=== PATIENT | male | born 1965 | race Two or more races ===

== ENCOUNTER 2018-01-25 13:19 | Emergency (ER) | payer OTHER, MEDICARE ==
[2018-01-25] MEDS ORDERED: LORazepam 2 MG/ML INJ IV STA (13:47)
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
[2018-01-25 14:09] LABS: Basophils % (A) 1 %; Eosinophils # (A) 0.2 k/uL (0-0.7); Eosinophils % (A) 3 %; HCT 47.8 % (39.0-53.0); HGB 16.9 gm/dL (13.0-17.5); Lymphocytes # (A) 2.1 k/uL (1.0-4.8); Lymphocytes % (A) 31 %; MCH 31.8 pg (25.0-35.0); MCHC 35.4 g/dL (31.0-37.0); MCV 89.7 fL (80.0-100.0); Mean Platelet Volume 7.6; Monocytes # (A) 0.3 k/uL (0-1.0); Monocytes % (A) 5 %; Neutrophils # (A) 3.8 k/uL (1.3-7.7); Neutrophils % (A) 59 %; Platelet Count 228 k/uL (150-450); RBC 5.32 m/uL (4.30-5.90); RDW 12.7 % (11.5-15.5); WBC 6.6 k/uL (3.8-10.6)
[2018-01-25 14:19] LABS: ALT 59 U/L (21-72); AST 30 U/L (17-59); Albumin 4.2 g/dL (3.5-5.0); Alkaline Phosphatase 140 U/L (38-126); Anion Gap 13 mmol/L; Blood Urea Nitrogen 16 mg/dL (9-20); Calcium 9.6 mg/dL (8.4-10.2); Carbon Dioxide 19 mmol/L (22-30); Chloride 103 mmol/L (98-107); Glucose 415 mg/dL (74-99); Potassium 4.4 mmol/L (3.5-5.1); Sodium 135 mmol/L (137-145); Total Bilirubin 0.6 mg/dL (0.2-1.3)
[2018-01-25 14:24] LABS: Valproic Acid (Depakene) <10.0 ug/mL
[2018-01-25 15:23] LABS: Appearance,Urine Clear (Clear); Bilirubin,Urine Negative (Negative); Blood,Urine Negative (Negative); Color,Urine Light Yellow; Glucose,Urine (UA) 4+ (Negative); Leukocyte Esterase,Urine Negative (Negative); Nitrite,Urine Negative (Negative); Protein,Urine Negative (Negative); Specific Gravity,Urine 1.031 (1.001-1.035); Urobilinogen,Urine <2.0 mg/dL (<2.0)
[2018-01-25] MEDS ORDERED: DIVALPROEX 500 MG TABLET.DR PO STA (15:29)
[2018-01-25 15:36] LABS: Glucose,Whole Blood 358 mg/dL (75-99)
[2018-01-25] MEDS ORDERED: INSULIN ASPART 100 UNIT/ML 1 ML 10 ML VIAL SQ ONE (15:44)
[2018-01-25 15:55] LABS: Ketones,Urine 2+ (Negative)
[2018-01-25 15:56] VITALS: BP 144/83; PULSE 79; RESP 16; TEMP 98.9
== END 2018-01-25 16:05 | disposition home or self-care (01) ==
LOC: EC 13:19
DX: G40.909 Epilepsy, unspecified, not intractable, without status epilepticus (principal); R03.0 Elevated blood-pressure reading, without diagnosis of hypertension; G47.33 Obstructive sleep apnea (adult) (pediatric); E11.9 Type 2 diabetes mellitus without complications; E32.9 Disease of thymus, unspecified; Z79.84 Long term (current) use of oral hypoglycemic drugs; Z79.899 Other long term (current) drug therapy
CPT/HCPCS: 36415; 80164; 80053; 80175; 81003; 85025; 99284; 96374; J2060

== ENCOUNTER 2018-02-28 18:10 | Emergency (ER) | payer MEDICARE ==
[2018-02-28 18:33] VITALS: BP 137/91; PULSE 92; RESP 18; TEMP 98.8
[2018-02-28] MEDS ORDERED: CEPHALEXIN 500MG STARTER PACK 4 CAP BTL PO STA (19:08)
[2018-02-28] MEDS ORDERED: SULFAMETH-TMP DS STARTER PACK 2 TAB BTL PO STA (19:08)
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
== END 2018-02-28 19:28 | disposition home or self-care (01) ==
LOC: EC 18:10
DX: L02.31 Cutaneous abscess of buttock (principal); E11.9 Type 2 diabetes mellitus without complications; F31.9 Bipolar disorder, unspecified; G40.909 Epilepsy, unspecified, not intractable, without status epilepticus; F41.9 Anxiety disorder, unspecified; G47.33 Obstructive sleep apnea (adult) (pediatric); Z79.84 Long term (current) use of oral hypoglycemic drugs; Z79.899 Other long term (current) drug therapy
CPT/HCPCS: 87070; 87205; 99283

== ENCOUNTER → 2018-04-09 | Outpatient (CLI) | payer OTHER | END | disposition home or self-care (01) | LOC: LABWHC1 13:34 | PROVIDERS: ATTEND Psychiatry & Neurology Clinical Neurophysiology | DX: Z91.19 Patient's noncompliance with other medical treatment and regimen (principal) | CPT/HCPCS: 36415; 80175 ==

== ENCOUNTER 2018-05-25 17:17 | Emergency (ER) | payer OTHER, MEDICARE ==
[2018-05-25] MEDS ORDERED: LORazepam 2 MG/ML INJ IV STA (17:35)
[2018-05-25] MEDS ORDERED: SODIUM CHLORIDE 0.9% 1,000 ML IV STA (17:35)
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
[2018-05-25 18:37] LABS: Basophils % (A) 0 %; Eosinophils # (A) 0.2 k/uL (0-0.7); Eosinophils % (A) 3 %; Lymphocytes # (A) 2.3 k/uL (1.0-4.8); Lymphocytes % (A) 27 %; MCH 30.7 pg (25.0-35.0); MCHC 33.2 g/dL (31.0-37.0); MCV 92.2 fL (80.0-100.0); Mean Platelet Volume 7.1; Monocytes # (A) 0.4 k/uL (0-1.0); Monocytes % (A) 5 %; Neutrophils # (A) 5.5 k/uL (1.3-7.7); Neutrophils % (A) 64 %; Platelet Count 247 k/uL (150-450); RBC 5.21 m/uL (4.30-5.90); RDW 13.6 % (11.5-15.5); WBC 8.7 k/uL (3.8-10.6)
[2018-05-25 18:38] LABS: Appearance,Urine Clear (Clear); Bilirubin,Urine Negative (Negative); Blood,Urine Negative (Negative); Color,Urine Yellow; Glucose,Urine (UA) 4+ (Negative); Ketones,Urine 1+ (Negative); Leukocyte Esterase,Urine Negative (Negative); Nitrite,Urine Negative (Negative); Protein,Urine Negative (Negative); Specific Gravity,Urine 1.036 (1.001-1.035)
[2018-05-25 18:50] LABS: Amphetamine Screen,Urine Not Detected (NotDetected); Barbiturate Screen,Urine Not Detected (NotDetected); Benzodiazepines Screen,Urine Not Detected (NotDetected); Cocaine Screen,Urine Not Detected (NotDetected); Methadone Screen, Urine Not Detected (NotDetected); Opiate Screen,Urine Not Detected (NotDetected); Oxycodone Screen, Urine Not Detected (NotDetected); Phencyclidine Screen,Urine Not Detected (NotDetected); Tricyclic Antidepressant,Urine Not Detected (NotDetected); Urn Cannabinoid Scrn Not Detected (NotDetected)
[2018-05-25 18:51] LABS: ALT 34 U/L (21-72); AST 21 U/L (17-59); Albumin 4.3 g/dL (3.5-5.0); Alcohol <10 mg/dL; Alkaline Phosphatase 95 U/L (38-126); Anion Gap 13 mmol/L; Blood Urea Nitrogen 16 mg/dL (9-20); Calcium 9.9 mg/dL (8.4-10.2); Carbon Dioxide 23 mmol/L (22-30); Chloride 102 mmol/L (98-107); Glucose 309 mg/dL (74-99); Potassium 4.4 mmol/L (3.5-5.1); Sodium 138 mmol/L (137-145); Total Bilirubin 0.5 mg/dL (0.2-1.3); Total Protein 7.1 g/dL (6.3-8.2)
[2018-05-25 18:56] LABS: Valproic Acid (Depakene) 45.1 ug/mL
[2018-05-25] MEDS ORDERED: DIVALPROEX 500 MG TABLET.DR PO STA (20:52)
[2018-05-25 21:00] LABS: Glucose,Whole Blood 273 mg/dL (75-99)
[2018-05-25] MEDS ORDERED: INSULIN REGULAR 100 UNIT/ML VIAL SQ ONE (21:05)
[2018-05-25 21:26] VITALS: BP 142/82; PULSE 82; RESP 16
[2018-05-25 21:27] VITALS: TEMP 98.2
[2018-05-26 04:26] LABS: Hemoglobin A1C 9.7 % (4.0-6.0)
== END 2018-05-25 21:24 | disposition home or self-care (01) ==
LOC: EC 17:17
DX: G40.909 Epilepsy, unspecified, not intractable, without status epilepticus (principal); E11.65 Type 2 diabetes mellitus with hyperglycemia; E78.5 Hyperlipidemia, unspecified; F32.9 Major depressive disorder, single episode, unspecified; G47.33 Obstructive sleep apnea (adult) (pediatric); Z87.820 Personal history of traumatic brain injury; Z98.890 Other specified postprocedural states; Z99.89 Dependence on other enabling machines and devices; Z79.84 Long term (current) use of oral hypoglycemic drugs; Z79.899 Other long term (current) drug therapy
CPT/HCPCS: 99284; 96374; 96361 ×3; 36415; 93005; 80164; 80053; 80175; 85025; 81003; 80306; 80320; 83036; J2060

== ENCOUNTER → 2020-01-09 | Outpatient (CLI) | payer OTHER | END | disposition home or self-care (01) | LOC: LABWHC1 09:29 | DX: Z51.81 Encounter for therapeutic drug level monitoring (principal); Z79.899 Other long term (current) drug therapy | CPT/HCPCS: 36415; 80164; 80175 ==

== ENCOUNTER → 2020-02-29 | Outpatient (CLI) | payer OTHER ==
[2020-02-29 11:23] LABS: Basophils % (A) 0 %; Eosinophils # (A) 0.3 k/uL (0-0.7); Eosinophils % (A) 4 %; HCT 50.4 % (39.0-53.0); HGB 16.7 gm/dL (13.0-17.5); Lymphocytes # (A) 2.4 k/uL (1.0-4.8); Lymphocytes % (A) 31 %; MCH 31.4 pg (25.0-35.0); MCHC 33.2 g/dL (31.0-37.0); MCV 94.8 fL (80.0-100.0); Mean Platelet Volume 7.5; Monocytes # (A) 0.4 k/uL (0-1.0); Monocytes % (A) 5 %; Neutrophils # (A) 4.6 k/uL (1.3-7.7); Neutrophils % (A) 58 %; Platelet Count 196 k/uL (150-450); RBC 5.31 m/uL (4.30-5.90); RDW 12.9 % (11.5-15.5); WBC 7.8 k/uL (3.8-10.6)
[2020-02-29 21:35] LABS: Valproic Acid (Depakene) 77.1 ug/mL (50.0-100.0)
[2020-02-29 21:52] LABS: African American GFR (CKD) 99.8 (60.0-200.0); Albumin 4.1 g/dL (3.80-4.90); Albumin/Globulin Ratio 1.86 (1.60-3.17); Anion Gap 13.7 mmol/L (4.00-12.00); Calcium 9.4 mg/dL (8.7-10.3); Carbon Dioxide 24.3 mmol/L (21.6-31.8); Globulin 2.2 g/dL (1.6-3.3); Non-African American GFR(CKD) 86.2 (60.0-200.0); Total Bilirubin 0.6 mg/dL (0.2-1.2); Total Protein 6.3 g/dL (6.2-8.2)
[2020-03-01 08:58] LABS: Lamotrigine (Lamictal) 9.6 ug/mL (2.0-15.0)
== END | disposition home or self-care (01) ==
LOC: LABWHC1 09:51
PROVIDERS: ATTEND Psychiatry & Neurology Clinical Neurophysiology
DX: R56.9 Unspecified convulsions (principal)
CPT/HCPCS: 36415; 80053; 80164; 80165; 80175; 85025

== ENCOUNTER 2020-03-20 15:54 | Emergency (ER) | payer OTHER ==
[2020-03-20 17:50] LABS: Basophils # (A) 0.1 k/uL (0-0.2); Basophils % (A) 1 %; Eosinophils # (A) 0.3 k/uL (0-0.7); Eosinophils % (A) 3 %; HCT 45.8 % (39.0-53.0); HGB 15.9 gm/dL (13.0-17.5); Lymphocytes # (A) 3.1 k/uL (1.0-4.8); Lymphocytes % (A) 35 %; MCH 31.7 pg (25.0-35.0); MCHC 34.7 g/dL (31.0-37.0); MCV 91.4 fL (80.0-100.0); Mean Platelet Volume 7.5; Monocytes # (A) 0.5 k/uL (0-1.0); Monocytes % (A) 5 %; Neutrophils # (A) 4.8 k/uL (1.3-7.7); Neutrophils % (A) 54 %; Platelet Count 224 k/uL (150-450); RBC 5.01 m/uL (4.30-5.90); WBC 8.9 k/uL (3.8-10.6)
--- NOTE | 2020-03-20 17:58 | XR ---
EXAMINATION TYPE: XR knee complete LT DATE OF EXAM: 03/20/2020 COMPARISON: NONE HISTORY: Knee pain TECHNIQUE: 3 views FINDINGS: There is no sign of fracture nor dislocation. Joint spaces are normal. There is no sign of joint effusion. IMPRESSION: Negative left knee exam.
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
[2020-03-20 18:00] LABS: ALT 28 U/L (4-49); AST 27 U/L (17-59); African American GFR (CKD) >90 (>60 ml/min/1.73 sqM); Alkaline Phosphatase 116 U/L (38-126); Anion Gap 9 mmol/L; Blood Urea Nitrogen 19 mg/dL (9-20); Calcium 9.7 mg/dL (8.4-10.2); Carbon Dioxide 26 mmol/L (22-30); Chloride 101 mmol/L (98-107); Glucose 326 mg/dL (74-99); Non-African American GFR(CKD) >90 (>60 ml/min/1.73 sqM); Potassium 4.2 mmol/L (3.5-5.1); Sodium 136 mmol/L (137-145); Total Bilirubin 0.6 mg/dL (0.2-1.3); Total Protein 6.7 g/dL (6.3-8.2)
[2020-03-20 18:05] LABS: INR 0.9 (<1.2); Partial Thromboplastin Time 22.3 sec (22.0-30.0); Prothrombin Time 9.6 sec (9.0-12.0)
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
[2020-03-20 19:39] VITALS: BP 135/79; PULSE 70; RESP 16; TEMP 97
== END 2020-03-20 19:52 | disposition home or self-care (01) ==
LOC: EC 15:54
DX: R10.11 Right upper quadrant pain (principal); R07.81 Pleurodynia; M25.562 Pain in left knee; R55 Syncope and collapse; E11.9 Type 2 diabetes mellitus without complications; E78.5 Hyperlipidemia, unspecified; G40.909 Epilepsy, unspecified, not intractable, without status epilepticus; G47.33 Obstructive sleep apnea (adult) (pediatric); F41.9 Anxiety disorder, unspecified; F31.9 Bipolar disorder, unspecified; Z79.84 Long term (current) use of oral hypoglycemic drugs; Z79.899 Other long term (current) drug therapy; Z99.89 Dependence on other enabling machines and devices; V47.5XXA Car driver injured in collision with fixed or stationary object in traffic accident, initial encounter; Y92.410 Unspecified street and highway as the place of occurrence of the external cause
CPT/HCPCS: 80053; 85025; 85610; 85730; 73562; 71046; 70450; 74177; 99284; Q9967

== ENCOUNTER 2021-01-12 10:29 | Emergency (ER) | payer OTHER ==
[2021-01-12 10:35] VITALS: RESP 16; TEMP 98
[2021-01-12] MEDS ORDERED: SODIUM CHLORIDE 0.9% 500 ML 500 ML IV ONE (10:38)
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
[2021-01-12 10:48] LABS: Basophils % (A) 0 %; Eosinophils # (A) 0.2 k/uL (0-0.7); Eosinophils % (A) 2 %; HCT 45.1 % (39.0-53.0); HGB 15.5 gm/dL (13.0-17.5); Lymphocytes # (A) 1.5 k/uL (1.0-4.8); Lymphocytes % (A) 19 %; MCH 31.1 pg (25.0-35.0); MCHC 34.4 g/dL (31.0-37.0); MCV 90.6 fL (80.0-100.0); Mean Platelet Volume 7.6; Monocytes # (A) 0.3 k/uL (0-1.0); Monocytes % (A) 4 %; Neutrophils # (A) 5.8 k/uL (1.3-7.7); Neutrophils % (A) 74 %; Platelet Count 224 k/uL (150-450); RBC 4.98 m/uL (4.30-5.90); RDW 13.9 % (11.5-15.5); WBC 7.9 k/uL (3.8-10.6)
[2021-01-12] MEDS ORDERED: levETIRAcetam IV 1,000 MG in SALINE 1 100ML.BAG IVPB STA (10:54)
[2021-01-12 10:59] LABS: AST 62 U/L (17-59); African American GFR (CKD) >90 (>60 ml/min/1.73 sqM); Albumin 4.3 g/dL (3.5-5.0); Alkaline Phosphatase 147 U/L (38-126); Anion Gap 15 mmol/L; Blood Urea Nitrogen 8 mg/dL (9-20); Carbon Dioxide 18 mmol/L (22-30); Chloride 100 mmol/L (98-107); Glucose 358 mg/dL (74-99); Non-African American GFR(CKD) >90 (>60 ml/min/1.73 sqM); Potassium 4.1 mmol/L (3.5-5.1); Sodium 133 mmol/L (137-145); Total Bilirubin 0.4 mg/dL (0.2-1.3); Total Protein 6.7 g/dL (6.3-8.2)
[2021-01-12 11:08] LABS: ALT 68 U/L (4-49)
[2021-01-12 11:35] LABS: Glucose,Whole Blood 315 mg/dL (75-99)
[2021-01-12] MEDS ORDERED: INSULIN ASPART (NovoLOG) 100 UNIT/ML VIAL SQ ONE (11:45)
[2021-01-12 12:06] VITALS: BP 150/74; PULSE 97
== END 2021-01-12 12:06 | disposition home or self-care (01) ==
LOC: EC 10:29
DX: G40.909 Epilepsy, unspecified, not intractable, without status epilepticus (principal); E11.65 Type 2 diabetes mellitus with hyperglycemia; E78.5 Hyperlipidemia, unspecified; Z79.84 Long term (current) use of oral hypoglycemic drugs; Z79.899 Other long term (current) drug therapy; Z91.14 Patient's other noncompliance with medication regimen
CPT/HCPCS: 36415; 93005; 80053; 85025; 99284; 96374; 96361; 96372; J1953

== ENCOUNTER 2021-06-23 00:39 | Emergency (ER) | payer OTHER ==
[2021-06-23 00:53] VITALS: TEMP 98.3
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
--- NOTE | 2021-06-23 01:44 | CT ---
EXAMINATION TYPE: CT brain wo con DATE OF EXAM: 06/23/2021 COMPARISON: 03/20/2020 HISTORY: fall CT DLP: 1115.40 mGycm Automated exposure control for dose reduction was used. There is mild cerebral atrophy. There is no mass effect or midline shift. There is no evidence of int racranial hemorrhage. Calvarium is intact. There is normal aeration of the mastoid sinuses. There is some mucosal thickening right maxillary sinus. There is 1 cm subtle hypodensity left posterior fronta l lobe white matter consistent with old lacunar infarct and unchanged. IMPRESSION: Mild atrophy. No acute intracranial abnormality.
[2021-06-23] MEDS ORDERED: IBUPROFEN 800 MG TAB PO STA (01:47)
[2021-06-23] MEDS ORDERED: KETOROLAC 15 MG/ML 1 ML VIAL IM STA (01:48)
[2021-06-23 02:04] VITALS: BP 163/70; PULSE 79; RESP 17
== END 2021-06-23 02:05 | disposition home or self-care (01) ==
LOC: EC 00:39
DX: S09.90XA Unspecified injury of head, initial encounter (principal); I10 Essential (primary) hypertension; E11.9 Type 2 diabetes mellitus without complications; W00.0XXA Fall on same level due to ice and snow, initial encounter; Y99.0 Civilian activity done for income or pay
CPT/HCPCS: 70450; 99284; 96372; J1885

== ENCOUNTER 2021-10-04 11:31 | Emergency (ER) | payer MEDICARE ==
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
[2021-10-04 13:23] VITALS: BP 114/74; PULSE 74; RESP 16; TEMP 98
== END 2021-10-04 13:22 | disposition home or self-care (01) ==
LOC: EC 11:31
DX: J06.9 Acute upper respiratory infection, unspecified (principal); I10 Essential (primary) hypertension; E78.5 Hyperlipidemia, unspecified